=== PATIENT | female | born 1975 | race Hispanic/Latino ===

== ENCOUNTER 2017-05-20 08:19 | Outpatient (CLI) | payer BC ==
--- NOTE | 2017-05-20 11:47 | Mammography Report ---
BILATERAL MAMMOGRAM: Routine views compared to prior examinations to her prior examinations in 2009 and 2012. The patient has a heterogeneously dense fibroglandular pattern. In the superior right MLO projection there is an area of focal architectural distortion not identified on the prior 2 exams. This is not appreciated in the CC projection. With this exception there are no other interval changes identified. CAD used. Impression: Right breast asymmetry. Recommendation: Impression images of the right breast. Ultrasound, if needed.
== END 2017-05-20 08:20 | disposition home or self-care (01) ==
LOC: SPVWC 08:19
PROVIDERS: ATTEND Nurse Practitioner
DX: Z12.31 Encounter for screening mammogram for malignant neoplasm of breast (principal)
CPT/HCPCS: 77067; G0202

== ENCOUNTER 2017-05-27 14:42 | Outpatient (CLI) | payer BC ==
--- NOTE | 2017-05-27 15:18 | Mammography Report ---
Right mammogram: Initial imaging of the right breast performed based on recent screening examination of May 20. The asymmetry identified in the superior MLO view is no longer identified on the current compression views in the lateral projection. The current examination is essentially unchanged compared to September 2013. Impression: Resolved asymmetry. Recommendation: Annual mammogram followup. BI-RADS CATEGORY: 1 = Negative ACR BI-RADS MAMMOGRAPHIC CODES: 0 = Needs additional imaging evaluation; 1 = Negative; 2 = Benign; 3 = Probably benign; 4 = Suspicious; 5 = Malignant; 6 = Known biopsy-proven malignancy COMMENT: 1. Dense breast tissue, i.e., adenosis, fibrocystic changes, etc., may obscure an underlying neoplasm. 2. Approximately 10% of cancers are not detected with mammography. 3. A negative mammography report should not delay biopsy if a clinically suspicious mass is present.
== END 2017-05-27 14:43 | disposition home or self-care (01) ==
LOC: SPVWC 14:42
PROVIDERS: ATTEND Internal Medicine
DX: R92.8 Other abnormal and inconclusive findings on diagnostic imaging of breast (principal)
CPT/HCPCS: G0206-RT

== ENCOUNTER 2018-07-23 14:52 | Outpatient (CLI) | payer BC ==
--- NOTE | 2018-07-24 08:34 | Mammography Report ---
BILATERAL DIGITAL SCREENING MAMMOGRAM with CAD: 07/23/18 14:52:00 CLINICAL: Routine screening. COMPARISON:05/20/17 and 10/15/13 FINDINGS: The breasts are heterogeneously dense, which may obscure small masses. No mass, architectural distortion or suspicious calcifications. IMPRESSION: No mammographic evidence of malignancy. BI-RADS CATEGORY: 1 - - Negative RECOMMENDATION: Routine mammographic screening in one year. COMMENT: Patient follow-up letters are generated by our [employer] application.
== END 2018-07-23 14:53 | disposition home or self-care (01) ==
LOC: SPVWC 14:52
PROVIDERS: ATTEND Internal Medicine
DX: Z12.31 Encounter for screening mammogram for malignant neoplasm of breast (principal)
CPT/HCPCS: 77067

== ENCOUNTER 2019-07-24 12:20 | Outpatient (CLI) | payer OTHER ==
--- NOTE | 2019-07-27 11:27 | Mammography Report ---
DIGITAL SCREENING MAMMOGRAM WITH CAD, 07/24/2019 INDICATION: Routine screening mammography. TECHNIQUE: Digital bilateral 2D mammography was obtained in the craniocaudal and mediolateral obliq ue projections. This examination was interpreted with the benefit of Computer-Aided Detection analysi s. COMPARISON: 07/23/2018 FINDINGS: Breast Density: The breasts are heterogeneously dense, which may obscure small masses. There is no evidence of dominant mass, suspicious calcifications or architectural distortion in eithe r breast. IMPRESSION: No mammographic evidence of malignancy. Follow up recommendation: Routine yearly BI-RADS Category 1: Negative. A "normal" or negative report should not discourage follow up or biopsy of a clinically significant f inding. A written summary of these findings will be mailed to the patient. The patient will be entered into a mammography reporting system which will generate a reminder letter for the patient's next appointmen t at the appropriate interval. The [employer] recommends yearly mammograms starting at age 40 and continuing as l donato as a woman is in good health. Breast MRI is recommended for women with an approximate 20-25% or greater lifetime risk of breast cancer, including women with a strong family history of breast or ova coty cancer or who have been treated for Hodgkin's disease. Signer Name: Efrain Jean MD Signed: 07/27/2019 11:22 AM Workstation Name: [id number]
== END 2019-07-24 12:21 | disposition home or self-care (01) ==
LOC: SPVWC 12:20
PROVIDERS: ATTEND Internal Medicine
DX: Z12.31 Encounter for screening mammogram for malignant neoplasm of breast (principal)
CPT/HCPCS: 77067